=== PATIENT | female | born 1935 | race Caucasian/White ===

== ENCOUNTER 2017-10-24 19:10 | Emergency (ER) | payer OTHER ==
[~2017-10-24] VITALS: Ht 154.9 cm; Wt 67.3 kg
[~2017-10-24 19:10] MED LIST: ATOR10TA15 PO; COUM2TAB PO; COUM4TAB PO; LEVO.075 PO; METO1TAB42 PO
[2017-10-24 19:13] VITALS: BP 147/86; PULSE 87; RESP 18; TEMP 97.8; O2SAT 98
--- NOTE | 2017-10-24 20:44 | PD ---
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 Patient felt onset of lightheadedness and dizziness at about 1600, she still went ahead and unloaded her groceries into her fridge and then finally sat down to rest. She felt warm, but denied developing any sweats, nausea, vomiting, or diarrhea. She also denied having any headache chest pain abdominal pain flank pain or back pain. She had a previous episode 3 weeks ago. Back then it was after she got a haircut and got up and felt dizzy and had to be helped back down, she was given a cracker and some candy in water. After which her symptoms resolved within 45-60 minutes. She then drove home but was followed by her daughter to make sure she was okay. The patient did not seek care at that point 3 weeks ago. No known drug allergy Past medical history significant for hypothyroidism, cataract both eyes, AAA, hypercholesterolemia, atrial fibrillation, hypertension, cholecystectomy, hysterectomy, psoriasis GERD. PFSH Past Medical History Hx Anticoagulant Therapy: Yes Arthritis: Yes Blood Disorders: No Heart Rhythm Problems: Yes Cancer: No Cardiovascular Problems: Yes (afib) High Cholesterol: Yes Diminished Hearing: No Endocrine: Yes Gastrointestinal Disorders: Yes Genitourinary: No Hypertension: Yes Immune Disorder: No Implanted Vascular Access Dvce: Yes Musculoskeletal: Yes Neurologic: No Psychiatric: No Respiratory: No Thyroid Disease: Yes Past Surgical History Eye Surgery: Yes (CATARACT SX BOTH EYES) Gynecologic Surgery: Yes (HYSTERECTOMY ) Hysterectomy: Yes Joint Replacement: Yes (bilat knee ) Other Surgery: Yes (r hand) Social History Alcohol Use: No Tobacco Use: No Substance Use: No Allergies-Medications (Allergen,Severity, Reaction): Coded Allergies: No Known Allergies (Verified Adverse Reaction, Unknown, 10/24/17) Reported Meds & Prescriptions Reported Meds & Active Scripts Active Meclizine (Meclizine HCl) 25 Mg Tab 25 Mg PO TID PRN Reported Lumigan Opth Drops (Bimatoprost) 0.01% Soln 1 Drop EACH EYE HS Alphagan P Opth Drops (Brimonidine Tartrate) 0.1% Soln 1 Drop RIGHT EYE Q8HR Vitamin D-1000 (Cholecalciferol) 1,000 Unit Tab 1,000 Units PO DAILY Estradiol 1 Mg Tab 1 Mg PO DAILY Diovan (Valsartan) 160 Mg Tab 160 Mg PO DAILY Levothyroxine (Levothyroxine Sodium) 50 Mcg Tab 50 Mcg PO DAILY Jantoven (Warfarin) 4 Mg Tab 4 Mg PO DAILY Jantoven (Warfarin) 2 Mg Tab 2 Mg PO DAILY Metoprolol Succinate ER 24 HR (Metoprolol Succinate) 25 Mg Tab 12.5 Mg PO BID Atorvastatin (Atorvastatin Calcium) 10 Mg Tab 10 Mg PO HS Review of Systems General / Constitutional: No: Fever Eyes: No: Visual changes HENT: No: Headaches Cardiovascular: No: Chest Pain or Discomfort Respiratory: No: Shortness of Breath Gastrointestinal: No: Abdominal Pain Genitourinary: No: Dysuria Musculoskeletal: No: Pain Skin: No Rash Neurologic: Positive: Dizziness Psychiatric: No: Depression Endocrine: No: Polydipsia Hematologic/Lymphatic: No: Easy Bruising Physical Exam Narrative GENERAL: SKIN: Warm and dry. HEAD: Atraumatic. Normocephalic. EYES: Pupils equal and round. No scleral icterus. No injection or drainage. ENT: No nasal bleeding or discharge. Mucous membranes pink and moist. NECK: Trachea midline. No JVD. CARDIOVASCULAR: Regular rate and rhythm. RESPIRATORY: No accessory muscle use. Clear to auscultation. Breath sounds equal bilaterally. GASTROINTESTINAL: Abdomen soft, non-tender, nondistended. Hepatic and splenic margins not palpable. MUSCULOSKELETAL: Extremities without clubbing, cyanosis, or edema. No obvious deformities. NEUROLOGICAL: Awake and alert. No obvious cranial nerve deficits. Motor grossly within normal limits. Five out of 5 muscle strength in the arms and legs. Normal speech. PSYCHIATRIC: Appropriate mood and affect; insight and judgment normal. Data Data Last Documented VS Vital Signs Date Time Temp Pulse Resp B/P (MAP) Pulse Ox O2 Delivery O2 Flow Rate FiO2 10/24/17 21:18 68 20 100 10/24/17 21:12 131/75 (93) 10/24/17 19:13 97.8 Orders Orders Electrocardiogram (10/24/17 20:52) Complete Blood Count With Diff (10/24/17 20:52) Comprehensive Metabolic Panel (10/24/17 20:52) Troponin I (10/24/17 20:52) B-Type Natriuretic Peptide (10/24/17 20:52) Prothrombin Time / Inr (Pt) (10/24/17 20:52) Act Partial Throm Time (Ptt) (10/24/17 20:52) Lipase (10/24/17 20:52) Thyroid Stimulating Hormone (10/24/17 20:52) Chest, Single Ap (10/24/17 20:52) Ct Brain W/O Iv Contrast(Rout) (10/24/17 20:52) Iv Access Insert/Monitor (10/24/17 20:52) Ecg Monitoring (10/24/17 20:52) Oximetry (10/24/17 20:52) Ed Discharge Order (10/24/17 22:34) Labs Laboratory Tests Test 10/24/17 21:10 White Blood Count 7.6 TH/MM3 Red Blood Count 4.17 MIL/MM3 Hemoglobin 13.1 GM/DL Hematocrit 39.1 % Mean Corpuscular Volume 93.6 FL Mean Corpuscular Hemoglobin 31.3 PG Mean Corpuscular Hemoglobin Concent 33.5 % Red Cell Distribution Width 13.6 % Platelet Count 238 TH/MM3 Mean Platelet Volume 7.8 FL Neutrophils (%) (Auto) 79.7 % Lymphocytes (%) (Auto) 14.7 % Monocytes (%) (Auto) 4.6 % Eosinophils (%) (Auto) 0.6 % Basophils (%) (Auto) 0.4 % Neutrophils # (Auto) 6.2 TH/MM3 Lymphocytes # (Auto) 1.1 TH/MM3 Monocytes # (Auto) 0.3 TH/MM3 Eosinophils # (Auto) 0.0 TH/MM3 Basophils # (Auto) 0.0 TH/MM3 CBC Comment DIFF FINAL Differential Comment Prothrombin Time 20.4 SEC Prothromb Time International Ratio 2.0 RATIO Activated Partial Thromboplast Time 36.0 SEC Blood Urea Nitrogen 27 MG/DL Creatinine 0.57 MG/DL Random Glucose 102 MG/DL Total Protein 7.6 GM/DL Albumin 3.6 GM/DL Calcium Level 9.0 MG/DL Alkaline Phosphatase 62 U/L Aspartate Amino Transf (AST/SGOT) 24 U/L Alanine Aminotransferase (ALT/SGPT) 30 U/L Total Bilirubin 0.2 MG/DL Sodium Level 134 MEQ/L Potassium Level 3.9 MEQ/L Chloride Level 103 MEQ/L Carbon Dioxide Level 25.4 MEQ/L Anion Gap 6 MEQ/L Estimat Glomerular Filtration Rate 101 ML/MIN Troponin I LESS THAN 0.02 NG/ML B-Type Natriuretic Peptide 72 PG/ML Lipase 391 U/L Thyroid Stimulating Hormone 3rd Gen 2.650 uIU/ML MDM Medical Decision Making Medical Screen Exam Complete: Yes Emergency Medical Condition: Yes Medical Record Reviewed: Yes Interpretation(s) Atrial fibrillation with controlled ventricular rate and no evidence of any ST elevation ND Differential Diagnosis Anemia versus dehydration versus atypical ND versus hepatitis versus pancreatitis Narrative Course Coagulation profile shows an INR of 2.0 which is consistent with taking Coumadin CBC shows no leukocytosis, no anemia, no left shift, normal platelet count. Electrolytes are all within normal limits, normal kidney liver and pancreatic functions. Normal TSH screen. And first set of cardiac enzymes negative, negative beta natruretic peptide of 72 Chest x-ray read by radiologist as no acute abnormality demonstrated CT head is negative for any evidence of intracranial hemorrhage, brain mass or sinusitis. Diagnosis Primary Impression: Weakness with dizziness Additional Instructions: Please follow-up with your primary care physician for referral to neurologist for further evaluation and care Scripts Meclizine (Meclizine) 25 Mg Tab 25 MG PO TID Y for VERTIGO, #15 TAB 0 Refills Prov: Panchito Dunn MD 10/24/17 Disposition: 01 DISCHARGE HOME Condition: Stable Panchito Dunn MD Oct 24, 2017 20:43
--- NOTE | 2017-10-24 21:07 | RADRPT ---
EXAM DATE/TIME: 10/24/2017 20:54 [facility] COMPARISON: No previous studies available for comparison. INDICATIONS : Short of breath. MEDICAL HISTORY : None. SURGICAL HISTORY : None. ENCOUNTER: Initial ACUITY: 1 day PAIN SCORE: 0/10 LOCATION: Bilateral chest FINDINGS: A single view of the chest demonstrates the lungs to be symmetrically aerated without evidence of mas s, infiltrate or effusion. The cardiomediastinal contours are unremarkable. Osseous structures are intact. Thoracic aorta is tortuous. CONCLUSION: No acute abnormality demonstrated. Dashawn Cross MD on October 24, 2017 at 21:04 Board Certified Radiologist. This report was verified electronically.
[2017-10-24] MEDS ORDERED: JANT2TAB PO (21:11)
[2017-10-24] MEDS ORDERED: LUMI0.01 EACH EYE (21:11)
[2017-10-24] MEDS ORDERED: DIOV160T6 PO (21:11)
[2017-10-24] MEDS ORDERED: ALPH0.1S RIGHT EYE (21:11)
[2017-10-24] MEDS ORDERED: VITA1000 PO (21:11)
[2017-10-24] MEDS ORDERED: ESTR1TAB PO (21:11)
[2017-10-24] MEDS ORDERED: JANT4TAB PO (21:11)
[2017-10-24] MEDS ORDERED: LEVO50TA4 PO (21:11)
[2017-10-24 21:12] VITALS: BP 131/75; PULSE 50; RESP 18; O2SAT 100
[2017-10-24 21:18] LABS: AUTOMATED NEUTROPHIL # 6.2 TH/MM3 (1.8-7.7); BASOPHIL % 0.4 % (0.0-2.0); EOSINOPHIL % 0.6 % (0.0-4.0); HEMATOCRIT 39.1 % (35.0-46.0); HEMOGLOBIN 13.1 GM/DL (11.6-15.3); LYMPH % 14.7 % (9.0-44.0); LYMPHOCYTE # 1.1 TH/MM3 (1.0-4.8); MEAN CELL VOLUME 93.6 FL (80.0-100.0); MEAN CORPUSCULAR HEMOGLOBIN 31.3 PG (27.0-34.0); MEAN CORPUSCULAR HGB CONC 33.5 % (32.0-36.0); MEAN PLATELET VOLUME 7.8 FL (7.0-11.0); MONO % 4.6 % (0.0-8.0); MONOCYTE # 0.3 TH/MM3 (0-0.9); NEUT % 79.7 % (16.0-70.0); PLATELET COUNT 238 TH/MM3 (150-450); RED BLOOD COUNT 4.17 MIL/MM3 (4.00-5.30); RED CELL DISTRIBUTION WIDTH 13.6 % (11.6-17.2); WHITE BLOOD COUNT 7.6 TH/MM3 (4.0-11.0)
[2017-10-24 21:26] LABS: CHLORIDE 103 MEQ/L (98-107); SODIUM (NA) 134 MEQ/L (136-145)
[2017-10-24 21:30] LABS: ALBUMIN 3.6 GM/DL (3.4-5.0); BICARBONATE 25.4 MEQ/L (21.0-32.0); GLUCOSE,RANDOM 102 MG/DL (74-106)
[2017-10-24 21:31] LABS: BLOOD UREA NITROGEN 27 MG/DL (7-18)
[2017-10-24 21:32] LABS: PROTHROMBIN TIME - PATIENT 20.4 SEC (9.8-11.6)
[2017-10-24 21:33] LABS: ALT (GPT) 30 U/L (10-53); AST (GOT) 24 U/L (15-37); CREATININE 0.57 MG/DL (0.50-1.00); GLOMERULAR FILTRATION RATE 101 ML/MIN (>89)
[2017-10-24 21:35] LABS: TOTAL BILIRUBIN ADULT 0.2 MG/DL (0.2-1.0); TOTAL PROTEIN 7.6 GM/DL (6.4-8.2)
[2017-10-24 21:36] LABS: ALKALINE PHOSPHATASE 62 U/L (45-117)
[2017-10-24 21:38] LABS: TROPONIN I LESS THAN 0.02 NG/ML (0.02-0.05)
[2017-10-24] MEDS ORDERED: MECL-62 PO (22:26)
--- NOTE | 2017-10-24 22:27 | RADRPT ---
EXAM DATE/TIME: 10/24/2017 22:14 [facility] COMPARISON: No previous studies available for comparison. INDICATIONS : Dizziness for two weeks. RADIATION DOSE: 53.92 CTDIvol (mGy) MEDICAL HISTORY : Aneurysm, abdominal. Hypertension. SURGICAL HISTORY : Cholecystectomy. Hysterectomy.Orthopedic surgery. ENCOUNTER: Initial ACUITY: 2 weeks PAIN SCALE: 0/10 LOCATION: cranial TECHNIQUE: Multiple contiguous axial images were obtained of the head. Using automated exposure control and adj ustment of the mA and/or kV according to patient size, radiation dose was kept as low as reasonably a chievable to obtain optimal diagnostic quality images. DICOM format image data is available electro nically for review and comparison. FINDINGS: CEREBRUM: The ventricles are normal for age. No evidence of midline shift, mass lesion, hemorrhage or acute in farction. No extra-axial fluid collections are seen. POSTERIOR FOSSA: The cerebellum and brainstem are intact. The 4th ventricle is midline. The cerebellopontine angle i s unremarkable. EXTRACRANIAL: The visualized portion of the orbits is intact. SKULL: The calvaria is intact. No evidence of skull fracture. CONCLUSION: Negative noncontrast head CT. Dashawn Cross MD on October 24, 2017 at 22:23 Board Certified Radiologist. This report was verified electronically.
[2017-10-24 23:11] VITALS: BP 120/67
--- NOTE | 2017-10-25 16:35 | EKG ---
Date Performed: 10/24/2017 Time Performed: 21:06:53 PTAGE: 82 years EKG: ATRIAL FIBRILLATION ABNORMAL RHYTHM ECG PREVIOUS TRACING : 04/09/2000 08.31 Since the previous tracing, no significant change noted DOCTOR: Jose Phillips Interpretating Date/Time 10/25/2017 16:30:39
== END 2017-10-24 23:13 | disposition home or self-care (01) ==
LOC: PHED 19:10
DX: R42 Dizziness and giddiness (principal); R53.1 Weakness; R06.02 Shortness of breath; E03.9 Hypothyroidism, unspecified; E78.00 Pure hypercholesterolemia, unspecified; I10 Essential (primary) hypertension; I48.91 Unspecified atrial fibrillation; Z79.01 Long term (current) use of anticoagulants
CPT/HCPCS: 70450; 71045; 80053; 83690; 83880; 84443; 84484; 85025; 85610; 85730; 93005; 99285